=== PATIENT | male | born 1960 | race Caucasian/White ===

== ENCOUNTER 2024-11-04 06:10 | Inpatient (IN) ==
--- NOTE | 2024-10-22 15:14 | Anesthesiology Consultation ---
Date of Service October 22, 2024 Assessment & Plan (1) Encounter for pre-operative examination: Chart Review Chart Review: Acceptable Risk for Surgery and Patient NOT seen in Pre Admission Testing - Check coags AM DOS 3+ alcohol drinks/daily -Infectious Disease screening: Per PAT nursing assessment on 10/22/24. No known infectious disease contacts in past 10 days or current infectious disease symptoms. No recent travel outside the country. Last seen by cardio 07/11/24= Atrial fibrillationreports symptoms of A-fib at times. Characterized primarily by sense of dyspnea. Interrogation of device suggest that he has fairly frequent episodes which are brief punctuated by occasional episodes which last a few hours. Rate control difficult to determine based on interrogation reports. However given relatively brief episodeswill continue current management at this time. Patient currently comfortable with warfarin as anticoagulationwill continue. No evidence of toxicity on EKG today. Normal functioning dual-chamber permanent pacemakerlongevity 2.1 years. Tachybradycardia syndromeno symptoms. Follow-up in 1 year. 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 History Surgery Operation Date: 11/04/24 09:55 Proposed Procedures p Robotic Assisted Laparoscopic Retropubic Prostatectomy, Possible Open, Possible Pelvic Lymph Node Dissection - Emmett Guevara MD Height/Weight Height: 6 ft Weight: 108.862 kg Allergies Allergy/AdvReac Type Severity Reaction Status Date / Time No Known Drug Allergies Allergy Verified 10/22/24 14:13 Medications Home Medications Medication Instructions Recorded Confirmed Last Taken folic acid 1 mg tablet 1 mg PO .COMPLEX 10/15/20 10/22/24 Unknown latanoprostene bunod 0.024 % eye 1 drp ophthalmic (eye) DAILY 10/15/20 10/22/24 Unknown drops (Vyzulta) cholecalciferol (vitamin D3) 50 50 mcg PO QAM 03/08/21 10/22/24 Unknown mcg (2,000 unit) tablet leflunomide 10 mg tablet (Arava) 10 mg PO QAM 12/18/22 10/22/24 Unknown magnesium oxide 400 mg PO BID 01/11/23 10/22/24 Unknown methotrexate sodium 2.5 mg tablet 10 mg PO .COMPLEX 01/11/23 10/22/24 Unknown metoprolol succinate 50 mg 50 mg PO BID #180 tabs 03/11/24 10/22/24 Unknown tablet,extended release 24 hr dofetilide 500 mcg capsule 500 mcg PO BID #180 caps 04/09/24 10/22/24 Unknown warfarin 7.5 mg tablet 7.5 mg PO DAILY #120 tabs 05/07/24 10/22/24 Unknown rosuvastatin 5 mg tablet 5 mg PO HS 10/22/24 10/22/24 Unknown Past Medical History Medical History Arthritis History of hypertension Hx of glaucoma Hx of hypercholesterolemia Hx of tachycardia-bradycardia syndrome f/u stephie king cardio Pacemaker [facility] [employer]; last checked 09/20/24 Paroxysmal atrial fibrillation currently on warfarin, ablation in 2015; f/u stephie arora cardio Prostate cancer dx 09/2024 Psoriatic arthritis Recurrent epistaxis hx, "has had it cauterized 2x in the past, only happens occasionally now" Past Family History Family History Mother Breast cancer Father , Tragic Accident age 23 No problems noted. Grandmother (Maternal) Brain tumor Grandfather (Maternal) Lung cancer Denies family history of Ovarian cancer Prostate cancer Myocardial infarction Colorectal cancer Past Surgical History Surgical History H/O eye surgery b/l tear duct open Hx of colonoscopy Hx of LASIK Tiarra Forbes. Both eyes. S/P ablation of atrial fibrillation 2016, [place]; f/u stephie king cardio S/P cardiac pacemaker procedure initial placement 2008, generator replacement 2016, [facility]; [facility] [facility] device, last checked 09/20/24; f/u stephie king cardio Social History Smoking Status: Former smoker Smoking cigarettes per day: hx of using smokless tobacco Do You Dip or Chew Tobacco: No (quit age 20; advised) Smoking End Date: age [age] Hx Alcohol Use: Yes Alcohol type: hard liquor alcohol intake frequency: 3 or more drinks per day Hx Substance Use: No substance use type: does not use Lab Results Anesthesia Preop Results Results Anesthesia Widget: WBC 8.93 K/ul (4.8-10.8) 10/17/24 Hgb 15.4 g/dl (14.0-18.0) 10/17/24 Hct 44.8 % (42.0-52.0) 10/17/24 Plt 210 K/uL (130-400) 10/17/24 Na 138 mmol/L (136-145) 10/17/24 K 4.3 mmol/L (3.5-5.1) 10/17/24 Cl 104 mmol/L (98-107) 10/17/24 CO2 27 mmol/L (21-32) 10/17/24 BUN 14 mg/dl (6-23) 10/17/24 Creat 0.82 mg/dl (0.6-1.4) 10/17/24 Glucose Level 104 mg/dl (70-99(Fasting)) H 10/17/24 Testing Laboratory Results 10/16/24= INR: 2.4 10/15/24= URINE CULTURE: No growth- less than 1000 colonies/mL Electrocardiogram Date: 07/11/24 Atrial paced rhythm at 70bpm When compared to EKG from Jun 25, 2023- inverted T waves have replaced nonspecific T wave abnormality in inferior leads per cardio (EKG done at routine cardio visit- deemed stable to drive with CDL license, no issues noted; inverted T wave to inferior leads since at least 05/02/21) Chest X-Ray Date: 10/17/24 Findings: + NAD FINDINGS: Left cardiac pacemaker is present. Heart size and pulmonary vasculature are normal. No effusion, consolidation, or pneumothorax. Stress Test Date: 01/05/21 Type: nuclear Normal myocardial perfusion SPECT images without evidence for pharmacologically induced ischemia. Normal LV wall motion and thickening. Normal LVEF post-rest 59%. Other Testing Pacemaker check 09/20/24= [facility] [employer] Device. Battery life 1.9 years. AP 82%. 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 Mode DDDR. Atrial events: EGM's illustrate AF/AFL, under sensing noted, longest 11.6 hours in duration per trend. Atrial burden 13%. Ventricular events: 15. EGM's illustrate AF/AFL with RVR, longest 10 minutes, 19 seconds in duration. DOT: 09/20/2024; average RVR >110 bpm >2 hours on 08/26/2024.
[2024-11-04] MEDS: LR 15ML/HR IV SCH (06:38)
[2024-11-04] MEDS: HEPARIN SOD 5,000 UNIT/0.5 ML VIAL SQ SCH ×2 (06:40→20:26)
[2024-11-04] MEDS ORDERED: MIDAZOLAM HCL 1 MG/ML 2ML VIAL ONE (06:47)
[2024-11-04] MEDS ORDERED: ROCURONIUM BROMIDE 10 MG/ML 5 ML VIAL IV ONE (06:47)
[2024-11-04] MEDS ORDERED: PROPOFOL IV EMULSION 10 MG/ML 20 ML VIAL IV ONE ×2 (06:47→08:20)
[2024-11-04] MEDS ORDERED: ONDANSETRON INJ 2 MG/ML 2 ML VIAL ONE (06:47)
[2024-11-04] MEDS ORDERED: SUGAMMADEX SODIUM 200 MG/2 ML VIAL IV ONE (06:47)
[2024-11-04] MEDS ORDERED: DEXAMETHASONE SOD INJ 4 MG/ML VIAL ONE (06:47)
[2024-11-04] MEDS ORDERED: fentaNYL citrate PF 100 MCG/2 ML VIAL ONE (06:47)
[2024-11-04] MEDS ORDERED: KETOROLAC 30 MG/ML VIAL IV PRN (06:50)
[2024-11-04] MEDS ORDERED: HYDROmorphone INJ 1 MG/ML SYRINGE IV PRN (06:50)
[2024-11-04] MEDS ORDERED: PROMETHAZINE HCL 6.25 MG in SODIUM CHLORIDE 0.9% 50 ML IV PRN (06:50)
[2024-11-04] MEDS ORDERED: ATROPINE SULFATE 0.1 MG/ML 10ML SYR IV PRN (06:50)
[2024-11-04 06:57] LABS: Partial Thromboplastin Time 26 Seconds (21-31); Prothrombin Time 10.9 Seconds (9.0-12.0)
--- NOTE | 2024-11-04 07:24 | History & Physical Bridge Note ---
Date of Service November 04, 2024 History & Physical Bridge Note I have examined the patient, reviewed the History & Physical and in the interval since the performance of the History & Physical I have noted the following changes of clinical significance: no changes noted
[2024-11-04] MEDS: ceFAZolin 2000MG 2,000 MG/15 ML SYR IV SCH ×2 (07:37→15:29)
[2024-11-04] MEDS ORDERED: METOPROLOL TARTRATE 1 MG/ML VIAL IV ONE (07:46)
[2024-11-04] MEDS ORDERED: HYDROmorphone INJ 2 MG/ML SYR/VIAL ONE (08:07)
[2024-11-04] MEDS: SURGICEL ABSORB HEMOSTAT 2IN X 14IN TOP ONE (09:45)
[2024-11-04] MEDS: FLOSEAL HEMOSTATIC MATRIX 10ML TOP ONE (10:00)
[2024-11-04] MEDS: BUPIVACAINE 0.5 % 5 MG/1 ML MPF 30ML VIAL ONE (10:27)
[2024-11-04] MEDS: BUPIVACAINE LIPOSOME 1.3% 266 MG/20 ML VIAL ONE (10:27)
--- NOTE | 2024-11-04 10:43 | Operative Report ---
PG Post Operative Report Pre & Post Diagnosis Operation Date: 11/04/24 07:30 Pre-Op Diagnosis: Prostate Cancer Post-Op Diagnosis: Prostate Cancer I identified the patient and participated in the time-out.: Yes Procedure Operation Date: 11/04/24 07:30 Actual Procedures p Robotic Assisted Laparoscopic Radical Retropubic Prostatectomy, Pelvic Lymph Node Dissection(Not Applicable) - Emmett Guevara MD Surgeon Emmett Guevara MD Melter Supervisor [employer] Caryn Martinez Estimated Blood Loss 150 Findings Consistent with Post-Op Diagnosis Specimens 1. Periprostatic fat 2. Left pelvic lymph nodes 3. Right pelvic lymph nodes 4. Prostate and seminal vesicles Description of Procedure The patient was identified in the preoperative holding area, appropriate informed consents were reviewed and completed, and he was transported to the operating suite. Subcutaneous heparin was administered in the pre-operative holding area. Upon arrival in the operating suite, he received appropriate antibiotics and general anesthesia. He was positioned in dorsal lithotomy, a B&O suppository was inserted after digital rectal exam, and he was prepped and draped in standard fashion. A Byrne catheter was inserted in the sterile field. A Veress needle was passed per umbilicus with uniform insufflation of the abdomen to 15mmHg. He was placed in steep Trendelenburg position. A periumbilical incision was then made to accommodate a 12mm Visiport with 10mm 0degree laparoscope. Inspection of the abdomen was carried out, and there was no evidence of traumatic entry or injury secondary to the Veress needle. After confirming a clear anterior abdominal wall, ports were subsequently placed in standard robotic prostatectomy fashion without incident. To begin the robotic portion of the case, the left lateral aspect of the sigmoid was mobilized off of the left pelvic side wall to allow the pouch of Noman to be appropriately visualized. Of note, he had more adhesions on the left lateral aspect of the pelvis the most manage took approximately 15 minutes of lysis of adhesions to entirely free the pouch of Noman. I then made an incision in the pouch of Noman, overlying the seminal vesicles. Both SVs as well as the ampullae of the vasa were entirely dissected, with the vasa transected 3cm from the prostate. The medial umbilical ligaments were then controlled with bipolar electrocautery just inferior to the umbilicus. Following cauterization, they were divided utilizing monopolar cautery. A peritoneal incision was carried from this location to the medial aspect of the internal inguinal rings bilaterally with care to avoid opening through the ring. This incision was concluded when the vas deferens was reached. Dissection of the bladder and prostate off of the posterior aspect of the pubic arch was completed allowing full visualization of the prostate. The fat overlying the prostate was removed en bloc and passed off the table as a specimen labeled "periprostatic fat". The endopelvic fascia was cleared during this portion of the procedure, and subsequently opened - first on the right and then the left. The incision through the endopelvic fascia began near the prostate-bladder junction and was carried to the apex with extreme care to preserve all lateral levator musculature as well as the periurethral musculature and sphincter complex. I additionally preserved the puboprostatic ligaments. I then controlled the DVC with a 3-0 V-lock suture in overlapping/figure of 8 fashion. The lymph node dissection was then conducted. External iliac vessels were identified on the pelvic side wall. The packet of fat and lymphatic tissue that resides just under the iliac vein was elevated and off of the vein with a split and roll technique. The packet was dissected laterally to the circumflex vein and distally to the obturator nerve which was preserved. The proximal aspect of the packet was carried towards the bifurcation of the iliac vessels. A combination of monopolar and bipolar cautery were used to assist with control. After completing the dissection on both sides, the packets were collected and passed off of the table as specimens labeled "pelvic lymph nodes". My attention then returned to the prostate, with identification of the bladder neck aided by gentle traction on the Byrne catheter and lateral to medial pressure at the presumed level of the bladder neck with the robotic instruments. An anterior cystotomy was made, the Byrne balloon deflated and the catheter guided through the incision to allow anterior retraction. I attempted to preserve maximal bladder neck musculature as I circumferentially dissected around the bladder neck. After incision through the posterior aspect of the mucosa, the dissection was carried through detrusor muscle until the bilateral ampullae of the vasa were identified. The previously dissected vasa and SVs were brought through the incision and used to elevated the prostate anteriorly. A posterior plane behind the prostate was then developed - splitting Denonvilliers's fascia. This dissection was carried as far as possible towards the apex as well as far as possible laterally. An incision in the lateral prostatic fascia was then made bilaterally to facilitate control of the vascular pedicles and preservation of the nerve bundles. Vasculature running along the posterior/lateral aspect of the prostate was preserved as well as the tissue containing the nerves. Slightly more caution was used on the side with positive pathology from biopsy. The pedicles were then controlled with a series of Weck clips. The apical attachments of the prostate were remaining at that stage. The DVC was divided after control with bipolar cautery over the prostate. Continuous inspection from anterior and lateral views allowed me to closely follow the apical contour of the prostate and maximally preserve urethral length and ti ssue. The prostate was entirely freed at that point, and collected in an EndoCatch bag before being moved out of the field of vision. Hemostasis was confirmed and anastomosis of the bladder and urethra was completed utilizing a double armed V- Lock stitch. A new Byrne catheter was inserted and the anastomosis tested with irrigation. There was no evidence of leak. A harlan style stitch was placed bilaterally to functionally marsupialize the area of the lymph node dissection. The robot was undocked, the specimen extracted through expansion of the jack- umbilical camera port. The fascia was closed with a series of 0-PDS figure of 8 stitches. Monocryl was used to close all other skin incisions. All wounds were dressed with Dermabond. Combination of Marcaine and Exparel was utilized for sk in and fascial anesthesia. The case was concluded and the patient taken to the PACU in stable condition. Caryn Martinez was present and scrubbed from incision to closure and assisted with all parts of the case. I attest to the content of the Intraoperative Record and any orders documented therein. Any exceptions are noted below.
[2024-11-04 11:29] LABS: Hematocrit (blood only) 44.2 % (42.0-52.0); Hemoglobin 15.4 g/dl (14.0-18.0); Mean Corpuscular Hemoglobin 34.4 pg (25.0-34.0); Mean Corpuscular Hgb Conc 34.8 g/dL (32.0-36.0); Mean Corpuscular Volume 98.7 fL (80.0-100.0); Mean Platelet Volume 9.5 fL (9.4-12.4); Platelet Count 151 K/uL (130-400); RDW Coefficient of Variation 13.7 % (11.5-14.5); RDW Standard Deviation 49.7 fL (36.4-46.3); Red Blood Count 4.48 M/uL (4.70-6.10); White Blood Count 8.42 K/ul (4.8-10.8)
--- NOTE | 2024-11-04 11:34 | Anesthesiology Progress Note ---
Date of Service November 04, 2024 Anesthesia Post Procedure Vital Signs Vital Signs: Temp Pulse Pulse Resp BP Pulse Ox O2 Del Method 11/04/24 11:30 70 13 159/92 H 95 Nasal Cannula 11/04/24 11:20 36.6 C 70 12 163/92 H 93 Nasal Cannula 11/04/24 11:10 70 12 172/96 H 93 Nasal Cannula 11/04/24 11:00 70 12 152/102 H 97 Oxymask 11/04/24 10:50 36 C L 70 12 171/116 H 97 Oxymask 11/04/24 06:31 36.5 C 70 18 178/103 H 96 Room Air O2 Flow Rate 11/04/24 11:30 2 11/04/24 11:20 2 11/04/24 11:10 2 11/04/24 11:00 5 11/04/24 10:50 5 11/04/24 06:31 Transfer of Care Handoff Completed per policy Notes Mental Status: alert / awake / arousable Patient Amnestic to Procedure: Yes Nausea / Vomiting: adequately controlled Pain: adequately controlled Airway Patency, RR, SpO2: stable & adequate BP & HR: stable & adequate Hydration State: stable & adequate Anesthetic Complications: no major complications apparent
[2024-11-04 11:49] LABS: Calcium 8.4 mg/dl (8.6-10.3); Potassium 4.5 mmol/L (3.5-5.1)
[2024-11-04 11:55] LABS: BUN Creatinine Ratio 17.8 (10-20); Creatinine Clr Calc Pharmacy 105.5 ml/min
[2024-11-04 12:00] LABS: Basophils # (auto) 0.06 K/uL (0.00-0.20); Basophils % (auto) 0.7 %; Dohle Bodies 1+; Eosinophils # (auto) 0.11 K/uL (0.00-0.50); Eosinophils % (auto) 1.3 %; Immature Granulocytes # (auto) 0.02 K/uL (0.01-0.20); Immature Granulocytes % (auto) 0.2 %; Lymphocytes # (auto) 0.46 K/uL (1.20-3.40); Lymphocytes % (auto) 5.5 %; Monocytes # (auto) 0.13 K/uL (0.11-0.59); Monocytes % (auto) 1.5 %; Neutrophils # (auto) 7.64 K/uL (1.40-6.50); Neutrophils % (auto) 90.8 %; Polychromasia 1+
[2024-11-04] MEDS ORDERED: oxyCODONE HCL IR 5 MG TAB (IMMEDIATE RELEASE) PO PRN (13:06)
[2024-11-04] MEDS ORDERED: MoRPHine SULFATE 2 MG/ML CARP IV PRN ×2 (13:06)
[2024-11-04] MEDS ORDERED: ONDANSETRON INJ 2 MG/ML 2 ML VIAL IV PRN (13:06)
[2024-11-04] MEDS ORDERED: ACETAMINOPHEN 325 MG TAB PO PRN (13:06)
[2024-11-04] MEDS: SODIUM CHLORIDE 0.9% 1,000 ML IV SCH (13:51)
[2024-11-04] MEDS: ASPIRIN 81 MG ECTAB PO SCH (15:29)
[2024-11-04] MEDS ORDERED: metHOTREXate sodium 2.5 MG TAB PO SCH (17:00)
[2024-11-04] MEDS: DOFETILIDE 125 MCG CAPSULE PO SCH (20:25)
[2024-11-04] MEDS: MAGNESIUM OXIDE 400 MG TAB PO SCH (20:25)
[2024-11-04] MEDS: DOCUSATE SODIUM 100 MG CAP PO SCH (20:25)
[2024-11-04] MEDS: METOPROLOL SUCC 50MG EXT REL TAB PO SCH (20:25)
[2024-11-04] MEDS: ROSUVASTATIN CALCIUM 5 MG TAB PO SCH (20:26)
[2024-11-04] MEDS: oxyCODONE HCL IR 5 MG TAB (IMMEDIATE RELEASE) PO PRN (20:27)
[2024-11-05 07:31] VITALS: PULSE 70; RESP 14; TEMP 98.1; O2SAT 96
--- NOTE | 2024-11-05 08:36 | Urology Progress Note ---
Date of Service November 05, 2024 Assessment & Plan (1) Prostate cancer: Plan: Postop day #1 status post robotic prostatectomy Progress is appropriate Plan for discharge home later this morning Hypertensive this morning, we will monitor this before discharge Admission and Anticipated Discharge Date Admission Date: November 04, 2024 Subjective No issues overnight Urine is clear Has been ambulating Has been tolerating a diet Pain is well-controlled Physical Exam Physical Exam: Incisions appropriate Some bruising around his infraumbilical incision Urine clear Results & Data Vital Signs (Past 12 Hours) Vital Signs Temp Pulse Pulse Resp BP BP Pulse Ox 11/05/24 07:27 36.7 C 70 14 178/101 H 96 11/05/24 03:00 36.4 C L 65 16 172/95 H 93 11/04/24 23:06 36.3 C L 70 16 162/89 H 95 O2 Del Method 11/05/24 07:27 Room Air 11/05/24 03:00 Room Air 11/04/24 23:06 Room Air PG Care Time/CCT Total # of Minutes Spent Total Time Spent with Patient: Total time spent is greater than 50% in coordination of care (as documented) at patient's floor/unit and/or counseling patient: Coding Level of Care Code None Diagnoses Prostate cancer C61
[2024-11-05] MEDS: LEFLUNOMIDE 10 MG TAB PO SCH (08:38)
[2024-11-05] MEDS: FOLIC ACID 1 MG TAB PO SCH (08:39)
[2024-11-05 09:37] VITALS: BP 142/77
[2024-11-05 09:37] LABS: Basophils # (auto) 0.01 K/uL (0.00-0.20); Basophils % (auto) 0.1 %; Hemoglobin 13.2 g/dl (14.0-18.0); Immature Granulocytes # (auto) 0.05 K/uL (0.01-0.20); Immature Granulocytes % (auto) 0.5 %; Lymphocytes # (auto) 0.91 K/uL (1.20-3.40); Lymphocytes % (auto) 9.3 %; Mean Corpuscular Hemoglobin 34.4 pg (25.0-34.0); Mean Corpuscular Hgb Conc 34.7 g/dL (32.0-36.0); Mean Platelet Volume 10.4 fL (9.4-12.4); Monocytes # (auto) 0.56 K/uL (0.11-0.59); Monocytes % (auto) 5.7 %; Neutrophils # (auto) 8.27 K/uL (1.40-6.50); Neutrophils % (auto) 84.4 %; Platelet Count 161 K/uL (130-400); RDW Coefficient of Variation 13.6 % (11.5-14.5); RDW Standard Deviation 49.6 fL (36.4-46.3); Red Blood Count 3.84 M/uL (4.70-6.10)
[2024-11-05 10:05] LABS: BUN Creatinine Ratio 17.3 (10-20); Calcium 8.2 mg/dl (8.6-10.3); Creatinine Clr Calc Pharmacy 126.6 ml/min; Potassium 4.4 mmol/L (3.5-5.1)
--- NOTE | 2024-11-05 12:49 | Discharge Summary ---
Date of Service November 05, 2024 Admission HPI Per Admitting Provider 63-year-old male with prostate cancer here for robotic prostatectomy Admission Exam Per Admitting Provider General: Alert and oriented, no acute distress HEENT: Normocephalic, mucous membranes moist Pulmonary: Nonlabored respirations Abdomen: Nondistended Extremities: Moves all 4 spontaneously Neuro: No gross deficits Skin: Warm, dry, no rashes noted Principal Diagnosis Prostate cancer Discharge Exam Incisions appropriate Some bruising around his infraumbilical incision Urine clear Constitutional no acute distress Respiratory normal respiratory effort; no respiratory distress and no labored breathing Musculoskeletal Head/Neck/Chest: normocephalic Skin no rashes, warm and dry Neurologic moves all extremities and awake Psychiatric A+Ox3, euthymic affect Genitourinary Byrne intact Discharge Data Allergies Allergy/AdvReac Type Severity Reaction Status Date / Time No Known Drug Allergies Allergy Verified 11/04/24 06:25 Procedures Performed Operation Date: 11/04/24 07:30 Actual Procedures p Robotic Assisted Laparoscopic Radical Retropubic Prostatectomy, Pelvic Lymph Node Dissection(Not Applicable) - Emmett Guevara MD Hospital Course (1) Prostate cancer: Plan 63-year-old male admitted status post robotic prostatectomy with Dr. Guevara. Patient tolerated procedure well. No acute issues postoperatively. He remained afebrile and hemodynamically stable. Labs were appropriate. Byrne catheter with adequate output, urine is clear yellow. He ambulated without issue. Tolerated diet. Reported minimal pain. Patient was discharged home on postop day #1 with a Byrne catheter in place. He was in stable condition at time of discharge. Discharge instructions were reviewed and all questions were answered. Appropriate postoperative follow-up appointments in place. Total Time Total Time Spent Total Time Spent (In Minutes): 15 Discharge Plan Discharge Items Patient Disposition: Home - Self-Care Reason For Visit: Prostate Cancer Discharge Diagnosis: Prostate Cancer Condition on Discharge: Good Activity: Per Instructions section Lifting: No more than 10 pounds Bathing Comment: OK to shower. No tub baths or soaks. Sexual Activity: Wait until after follow-up appointment Exercise/Sports: Wait until after follow-up appointment Driving/Machine Use: Do not drive if taking prescription pain medication. Non-emergency contact: Surgeon and Urologist Call non-emergency contact if: you have any medication questions, your symptoms worsen, your pain is not controlled, you have a fever, your temperature is above 101, your wound has increased redness, your wound has increased drainage and your wound pain has increased Follow-up/Referrals: Emmett Guevara MD [Physician] - 11/19/24 2:15 pm Rebecca Perdue DO [Primary Care Provider] - Urology,Nurse [FAKE FOR SCHEDULES] - 11/10/24 8:00 am Diet: Regular Addtl Attending Provider Instructions: Please come to Dr. Guevara's office on 11/10/24 at 8:00AM to have your catheter removed. You will have an appointment to see Dr. Guevara on 11/19/24 at 2:15 pm. Please take all medications as prescribed and keep all follow-ups as scheduled. Please call our office at [phone] with any questions, concerns or need to reschedule appointments for any reason. We are happy to assist you We have sent an antibiotic to your pharmacy of choice. Please begin antibiotic as prescribed the day BEFORE your scheduled catheter removal at [facility]. Please continue antibiotic every 12 hours until complete. You may resume Coumadin tomorrow 11/06/24. Please follow-up with cardiology or provider who typically manages/monitors your Coumadin therapy. Activity: We recommend having someone with you for the first few days after surgery to help care for you. For the first 2 weeks after surgery, we would like you to get up and walk around your house. However, we recommend limit physical activity that would increase your heart rate. This will allow your body to rest and heal. Take naps if you feel tired. Don't lift anything heavier than 10 pounds, mow the law or ride a bicycle until your follow-up appointment. Please avoid long car rides. Home Care: Unless directed otherwise, drink 6 to 8 glasses of water a day (enough to keep your urine light colored). This will also help keep a healthy flow of urine. We recommend using a stool softener for the first two weeks to avoid constipation. Byrne Catheter or Suprapubic Catheter care: Keep the catheter well secured with either a leg back or leg strap with large bag. Empty your bag when it's about half full. You may notice some blood in the bag. This is normal after surgery and while the catheter is in place. Use mild soap (such as Dove or Dial) and water to wash the catheter and the head of your penis daily, or more frequently if needed. Return to your normal diet, we encourage good protein intake to promote healing. You may shower as normal. Please avoid tub baths or soaking until catheter removed and incisions well healed. Wearing sweat pants while you have the catheter is recommended, they will be more comfortable. Follow-up Your follow up appointments for having your catheter removed, and follow up with your physician should already be scheduled. If you have any questions regarding this, please contact our office. Your final pathology report will be discussed at your physician follow-up appointment. Call [facility] at [phone] right away if you have any of the following: Chest pain or trouble breathing (call [phone] or go to the hospital) Fever of 101F or higher, uncontrolled vomiting Heavy bleeding, clots, or bright red blood from the catheter Catheter that falls out or stops draining Foul-smelling discharge from your catheter Redness, swelling, warmth, or increased pain at your incision site Drainage, pus, or bleeding from your incision Pending Studies at Discharge: Yes (pathology) Stand-Alone Forms: My [employer], Smoking Cessation Medications and DC Order Prescriptions: New cephalexin 500 mg capsule 500 mg PO BID 3 Days Qty: 6 0RF oxycodone 5 mg tablet 5 mg PO Q8H PRN (Reason: pain) Qty: 7 0RF Continued metoprolol succinate 50 mg tablet extended release 24 hr 50 mg PO BID Qty: 180 3RF warfarin 7.5 mg tablet 7.5 mg PO DAILY Qty: 120 3RF Protocol: Dose Management Condition: Sunday Dose/Route: 7.5 mg Instruction: 1 x 7.5 mg tablet Condition: Sunday Dose/Route: 3.75 mg Instruction: 0.5 x 7.5 mg tablets Condition: Sunday Dose/Route: 7.5 mg Instruction: 1 x 7.5 mg tablet Condition: Sunday Dose/Route: 7.5 mg Instruction: 1 x 7.5 mg tablet Condition: Dose/Route: 7.5 mg Instruction: 1 x 7.5 mg tablet Condition: Sunday Dose/Route: 3.75 mg Instruction: 0.5 x 7.5 mg tablets Condition: Sunday Dose/Route: 7.5 mg Instruction: 1 x 7.5 mg tablet Protocol Text: Adjustment Start Date: Sunday10/31/24 INR Value: 2.2 INR Date: 10/31/24 Recheck Date: 11/07/24 leflunomide [Arava] 10 mg tablet 10 mg PO QAM cholecalciferol (vitamin D3) 50 mcg (2,000 unit) tablet 50 mcg PO QAM magnesium oxide 400 mg magnesium capsule 400 mg PO BID folic acid 1 mg tablet 1 mg PO .COMPLEX Rx Instructions: 1 mg PO daily except Tuesdays; Vyzulta 0.024 % drops 1 drp ophthalmic (eye) DAILY methotrexate sodium 2.5 mg tablet 10 mg PO .COMPLEX Rx Instructions: 10 mg orally SUNDAY; BID; rosuvastatin 5 mg tablet 5 mg PO HS dofetilide [Tikosyn] 500 mcg capsule 500 mcg PO BID Discharge Orders: Discharge Order (Routine); Ordered 11/05/24 Ordered By: Caryn Dietrich/Other Patient Handouts: Urinary Catheter Bag Empty Clean, Byrne Catheter Male Admission Data Admit Date/Time: 11/04/24 11:05 Attending Provider: Emmett Guevara Admit Provider: Emmett Guevara Primary Care Provider: Rebecca Perdue Other Interventions: Discharge Summary Assessment (RN) Last Done: 11/05/24 09:48 Coding Level of Care Code 07455 IN/OBS DISCH 30 MIN/LESS Diagnoses Prostate cancer C61
== END 2024-11-05 13:10 | disposition home or self-care (01) | DRG 707 ==
LOC: ASU 06:10 → 3N 11:05 → PACUINP 12:12 → 3N 13:04